=== PATIENT | female | born 1960 | race Two or more races ===

== ENCOUNTER 2025-01-07 12:46 | Inpatient (IN) | payer MEDICARE, OTHER ==
[~2025-01-07] VITALS: Ht 157.5 cm; Wt 64.0 kg
--- NOTE | 2025-01-07 14:13 | DVH ---
EXAM: CT HEAD WITHOUT CONTRAST; DATE: 01/07/2025 01:39 PM HISTORY: dizzy, n/v COMPARISON: None TECHNIQUE: Axial images were obtained and reformatted in coronal and sagittal planes. All CT scans at this medical facility are performed using dose modulation techniques as appropriate t o a performed exam including the following: Automated exposure control was utilized; adjustment of th e MA and/or KV according to patient size; and use of iterative reconstruction technique. CT Dose: CTDI volume is 51 mGy. Dose-length product is 101 mGy*cm FINDINGS: Supratentorial Region: No evidence for large acute territorial ischemia. No intracranial hemorrhage is noted. An old lacunar infarct is seen in the left basal ganglia. Symmetric calcification of the b ilateral globus pallidi noted. Posterior Fossa: No acute abnormality. Brainstem: Unremarkable. Sellar/Suprasellar Region: Unremarkable. Ventricles, Cisterns, Sulci: Age-appropriate. Orbits: Unremarkable. Paranasal Sinuses: Unremarkable. Mastoid Air Cells: Unremarkable. Vasculature: Intracranial arterial calcified plaque formation noted. Bones/Soft Tissues: No acute abnormality. Other: None. IMPRESSION: 1. No acute intracranial process.
[2025-01-07 14:23] LABS: Basophils # (auto) 0.1 10 ^3/uL (0-0.2); Basophils % (auto) 0.4 % (0.0-2.0); Eosinophils # (auto) 0 10 ^3/uL (0-0.8); Eosinophils % (auto) 0.2 % (0.0-7.0); Hemoglobin 13.7 g/dL (12.2-16.2); Lymphocytes # (auto) 1.4 10 ^3/uL (0.4-5.4); Lymphocytes % (auto) 8.8 % (10.0-50.0); Mean Corpuscular Hemoglobin 28.5 pg (28.0-32.0); Mean Corpuscular Hgb Conc. 34.3 g/dL (32.0-36.0); Mean Corpuscular Volume 83.2 fL (80.0-100.0); Monocytes # (auto) 0.4 10 ^3/uL (0-1.3); Monocytes % (auto) 2.3 % (0.0-12.0); Neutrophils # (auto) 13.7 10 ^3/uL (1.6-8.6); Neutrophils % (auto) 88.3 % (37.0-80.0); Platelet Count (auto) 273 10^3/uL (140-450); Red Blood Cells 4.81 10^6/uL (4.0-5.20); Red Cell Distribution Width 12.6 % (11.8-14.3); White Blood Cell 15.5 10^3/uL (4.4-10.8)
--- NOTE | 2025-01-07 14:24 | ED.PDOC ---
HPI (NEURO) HPI Comments 64y F who presents to the ED for chief complaint of dizziness. Pt states earlier AM this while in bed, pt tried getting up and attempting to use the restroom but states she felt dizzy as if the room was spinning, then developed nausea and vomiting. Pt daughter went to check on her and pt was weak and lethargic and noted nausea with 1x vomiting episode. Pt continued to have multiple vomiting episodes with noted generalized weakness and was brought to the ED for further evaluation. Pt in the ED, states has has noted history of HTN and DM and due to changes in insurance, she has been without her medications for the past 1 year. Pt in the ED, has noted accu check of 348 and BP of 189/84. Pt states she feels dizzy and states the room is spinning and states she is afraid to open her eyes as this exacerbates the dizziness. Patient also notes diffuse headache. Pt in the ED, otherwise denies chest pain, abdominal pain, shortness of breath, fever, cough, chills, or dysuria. Pt otherwise denies any other symptoms at this time. Chief Complaint: dizziness Time Seen by MD: 14:19 Reviewed Notes: Medications, Allergies Information Source: Patient, Relative Mode of Arrival: Wheelchair Brought in by: daughter Past Medical History PAST MEDICAL HISTORY: CAD, DM, High Lipids, HTN Surgical History: Denies all surgeries [employer] History: Unknown Family History Family History: Reviewed,noncontributory to illness Social History Smoker: Non-Smoker Alcohol: Denies ETOH Use Drugs: Denies Drug Use Lives In: Home Constitutional: denies: chills, diaphoresis, fatigue, fever, malaise, sweats, weakness, others EENTM: denies: blurred vision, double vision, ear bleeding, ear discharge, ear drainage, ear pain, ear ringing, eye pain, eye redness, hearing loss, mouth pain, mouth swelling, nasal discharge, nose bleeding, nose congestion, nose pain, photophobia, tearing, throat pain, throat swelling, voice changes, others Respiratory: denies: cough, hemoptysis, orthopnea, SOB at rest, shortness of breath, SOB with excertion, stridor, wheezing, others Cardiovascular: denies: chest pain, dizzy spells, diaphoresis, Dyspnea on exertion, edema, irregular heart beat, left arm pain, lightheadedness, palpitations, PND, syncope, others Gastrointestinal: reports: nausea, vomiting; denies: abdomen distended, abdominal pain, blood streaked bowels, constipated, diarrhea, dysphagia, difficulty swallowing, hematemesis, melena, poor appetite, poor fluid intake, rectal bleeding, rectal pain, others Genitourinary: denies: abnormal vagina bleeding, burning, dyspareunia, dysuria, flank pain, frequency, hematuria, incontinence, pain, , vagina discharge, urgency, others Neurological: reports: dizziness, headache; denies: fainting, left sided numbness, left sided weakness, numbness, paresthesia, pre-existing deficit, right sided numbness, right sided weakness, seizure, speech problems, tingling, tremors, weakness, others Musculoskeletal: denies: back pain, gout, joint pain, joint swelling, muscle pain, muscle stiffness, neck pain, others Integumetry: denies: bruises, change in color, change in hair/nails, dryness, laceration, lesions, lumps, rash, wounds, others Allergic/Immunocompromised: denies: Difficulty Healing, Frequent Infections, Hives, Itching, others Hematologic/Lymphatic: denies: anemia, blood clots, easy bleeding, easy bruising, swollen glands, others Endocrine: denies: excessive hunger, excessive sweating, excessive thirst, excessive urination, flushing, intolerance to cold, intolerance to heat, unexplained weight gain, unexplained weight loss, others Psychiatric: denies: anxiety, bipolar disorder, depression, hopeless, panic disorder, schizophrenia, sleepless, suicidal, others All Other Systems: Reviewed and Negative Physical Exam General Appearance: Moderate Distress HEENT: PERRL/EOMI, Other (Face symmetric. Moist mucous membranes.) Neck: Full Range of Motion, Normal Inspection Respiratory: Lungs Clear, No Accessory Muscle Use, No Respiratory Distress, Normal Breath Sounds Cardiovascular: No Edema, No JVD, Regular Rate/Rhythm Breast Exam: Deferred Gastrointestinal: Non Tender, Soft Genitalia: Deferred Pelvic: Deferred Rectal: Deferred Extremities: Normal inspection, Normal range of motion, Non-tender, No pedal edema Neurologic: Alert (Oriented x4), Headache, Normal Affect, Normal Mood, Other (Head and/or eye movement reproduces dizziness. Moves all extremities with ad equate strength and tone. No gross focal deficit.) Cerebellar Function: NOT DONE Reflexes: NOT DONE Skin: Dry, Normal Color, Warm Lymphatic: NOT DONE EKG EKG : Comments Sinus rhythm, rate 77, normal NH and QRS intervals, QTC prolonged at 510, normal axis, normal QRS, nonspecific T changes. Was a procedure done? Was a procedure done?: No Differential Diagnosis (SZ) Seizure: CVA/TIA, Hypoglycemia, Hyponatremia, Mass Lesion, Encephalopathy CVA: DKA General Weakness: Anemia, Dehydration, Electrolyte imbalance, Myocardial infarction, Vertigo: central, Vertigo: peripheral, Other (HTN urgency/emergency) Headache: Migraine, Epidural Hemorrhage, Intracerebral Hemorrhage, Subarachnoid Hemorrhage, Subdural Hemorrhage X-Ray, Labs, Meds, VS Vital Signs Date Time Temp Pulse Resp B/P (MAP) Pulse Ox O2 Delivery O2 Flow Rate FiO2 01/07/25 13:25 77 01/07/25 13:20 97.9 79 18 189/84 (119) 97 97.9 Lab Test 01/07/25 15:17 01/07/25 14:13 01/07/25 13:17 Range/Units Troponin I High Sensitivity 3 L < 3 L </=34 ng/L White Blood Count 15.5 H 4.4-10.8 10^3/uL Red Blood Count 4.81 4.0-5.20 10^6/uL Hemoglobin 13.7 12.2-16.2 g/dL Hematocrit 40.0 36.0-46.0 % Mean Corpuscular Volume 83.2 80.0-100.0 fL Mean Corpuscular Hemoglobin 28.5 28.0-32.0 pg Mean Corpuscular Hemoglobin Concent 34.3 32.0-36.0 g/dL Red Cell Distribution Width 12.6 11.8-14.3 % Platelet Count 273 140-450 10^3/uL Mean Platelet Volume 8.2 6.9-10.8 fL Neutrophils (%) (Auto) 88.3 H 37.0-80.0 % Lymphocytes (%) (Auto) 8.8 L 10.0-50.0 % Monocytes (%) (Auto) 2.3 0.0-12.0 % Eosinophils (%) (Auto) 0.2 0.0-7.0 % Basophils (%) (Auto) 0.4 0.0-2.0 % Neutrophils # (Auto) 13.7 H 1.6-8.6 10 ^3/uL Lymphocytes # (Auto) 1.4 0.4-5.4 10 ^3/uL Monocytes # (Auto) 0.4 0-1.3 10 ^3/uL Eosinophils # (Auto) 0 0-0.8 10 ^3/uL Basophils # (Auto) 0.1 0-0.2 10 ^3/uL Nucleated Red Blood Cells 0.0 % Sodium Level 135 L 136-145 mmol/L Potassium Level 4.0 3.5-5.1 mmol/L Chloride Level 99 98-107 mmol/L Carbon Dioxide Level 25 20-31 mmol/L Anion Gap 11 5-15 Blood Urea Nitrogen 15 9-23 mg/dL Creatinine 0.75 0.550-1.02 mg/dL Glomerular Filtration Rate Calc 88 >90 mL/min BUN/Creatinine Ratio 20.0 10.0-20.0 Serum Glucose 371 H 74-106 mg/dL Calcium Level 9.7 8.7-10.4 mg/dL Total Bilirubin 0.9 0.2-1.0 mg/dL Aspartate Amino Transferase (AST) 12 L 13-40 U/L Alanine Aminotransferase (ALT) 12 7-40 U/L Alkaline Phosphatase 153 H 46-116 U/L B-Type Natriuretic Peptide 25.84 0-100 pg/mL Total Protein 7.6 5.7-8.2 g/dL Albumin 4.5 3.2-4.8 g/dL POC Glucose 348 H 70-106 mg/dl [place] [id number] Ph: [phone] DIAGNOSTIC IMAGING Diagnostic Imaging Report : [id number] Signed PATIENT: NEDRA PACKER ACCT: [id number] UNIT: [id number] : 1960 LOC: ER ROOM / BED: / AGE / SEX: 64 / F ADM STATUS: REG ER SERVICE 1330 ORDERING PHYSICIAN: SAI CAMPOS MD PROCEDURE(s): HWOCT - HEAD WITHOUT CONTRAST REASON: dizzy, n/v ORDER NUMBER(s): [id number], ACCESSION NUMBER(s): [id number] EXAM: CT HEAD WITHOUT CONTRAST; DATE: 01/07/2025 01:39 PM HISTORY: dizzy, n/v COMPARISON: None TECHNIQUE: Axial images were obtained and reformatted in coronal and sagittal planes. All CT scans at this medical facility are performed using dose modulation techniques as appropriate to a performed exam including the following: Automated exposure control was utilized; adjustment of the MA and/or KV according to patient size; and use of iterative reconstruction technique. CT Dose: CTDI volume is 51 mGy. Dose-length product is 101 mGy*cm FINDINGS: Supratentorial Region: No evidence for large acute territorial ischemia. No intracranial hemorrhage is noted. An old lacunar infarct is seen in the left basal ganglia. Symmetric calcification of the bilateral globus pallidi noted. Posterior Fossa: No acute abnormality. Brainstem: Unremarkable. Sellar/Suprasellar Region: Unremarkable. Ventricles, Cisterns, Sulci: Age-appropriate. Orbits: Unremarkable. Paranasal Sinuses: Unremarkable. Mastoid Air Cells: Unremarkable. Vasculature: Intracranial arterial calcified plaque formation noted. Bones/Soft Tissues: No acute abnormality. Other: None. IMPRESSION: 1. No acute intracranial process. ATED BY: DAMARIS BUCKLEY MD DICTATED DATE/TIME: 01/07/25 141 SIGNED BY: DAMARIS BUCKLEY MD SIGNED DATE/TIME: 01/07/25 141 CC: [place] [id number] Ph: [phone] DIAGNOSTIC IMAGING Diagnostic Imaging Report : [id number] Signed PATIENT: NEDRA PACKER ACCT: [id number] UNIT: [id number] : 1960 LOC: ER ROOM / BED: / AGE / SEX: 64 / F ADM STATUS: REG ER SERVICE 1330 ORDERING PHYSICIAN: SAI CAMPOS MD PROCEDURE(s): CXRP - CHEST PORTABLE REASON: dizzy, n/v ORDER NUMBER(s): [id number], ACCESSION NUMBER(s): [id number] EXAM: XY CHEST PORTABLE Indication: dizzy, n/v Technique: Single frontal view of the chest was obtained Comparison: None FINDINGS: Lines and Tubes: None Lungs: No focal consolidation. Pleura: No effusion. No pneumothorax. Cardiomediastinal contours: Unremarkable. Atherosclerotic vascular calcifications of the thoracic aorta are noted. Bones: No acute osseous abnormality. IMPRESSION: No acute cardiopulmonary disease. ATED BY: GISELLA SANTACRUZ MD DICTATED DATE/TIME: 01/07/251437 SIGNED BY: GISELLA SANTACRUZ MD SIGNED DATE/TIME: 01/07/251437 CC: X-Ray, Labs, Meds, VS Comment 64-year-old female with a history of diabetes, hypertension, dyslipidemia and heart disease brought in by daughter for evaluation of vertigo, nausea and vomiting Vitals remarkable for BP 189/84 Exam remarkable for reproducible dizziness with eye/head movement and active vomiting Rhythm strip independently interpreted by me: Sinus rhythm, rate 77, no ectopy. CT head unremarkable CBC remarkable for WBC 15.5, metabolic panel remarkable for sodium 135, glucose 371, BNP and troponin negative Patient treated with the following in the ED: Meclizine 50 mg p.o., Zofran 4 mg IV, 1 L 0.9 normal saline IV, hydralazine 5 mg IV On re-evaluation, patient states symptoms have somewhat improved but are still present. Plan is to admit the patient for blood pressure control, glucose and electrolyte correction, and neuro evaluation. Time of 1ST Reevaluation: 14:50 Reevaluation 1ST: Unchanged Patient Education/Counseling: Diagnosis, Treatment Family Education/Counseling: Diagnosis, Treatment Additional Information -Reviewed patient's previous visit(s): - The following tests were ordered, and results were reviewed by me: trop x2, cbc, cmp, bnp, chest x-ray, ua, ekg x 1, ct head w/o contrast, - Additional information was gathered from interviewing the following independent Historian: pt daughter - I reviewed and agreed with the following test results read by other provider: radiologist - I discussed treatments and results with medical personnel and: patient and pt daughter Comprehensive systems review obtained and negative except for what is stated in the HPI. Departure 1 Departure Time of Disposition: 15:03 Impression: Primary Impression: Vertigo Additional Impressions: Hypertensive urgency Hyperglycemia Hyponatremia Disposition: 09 ADMITTED INPATIENT Admit to: Tele Condition: Guarded Critical Care Note Critical Care Time?: No Stability Stability form required: No Heart Score Heart Score: Heart Score Response (Comments) Value History N/A 0 EKG N/A 0 Age N/A 0 Risk Factors N/A 0 Troponin N/A 0 Total 0 I personally scribed for SAI CAMPOS MD ([facility] on 01/07/25 at 14:24. Electronically submitted by Flavio Vivas ([email or web address] I personally scribed for SAI CAMPOS MD ([facility]) on 01/07/25 at 14:25. Electronically submitted by Flavio Vivas ([facility] I personally scribed for SAI CAMPOS MD ([facility]) on 01/07/25 at 15:06. Electronically submitted by Flavio Vivas ([email or web address] SAI CAMPOS MD Jan 07, 2025 14:24
[2025-01-07 14:37] LABS: Alanine Aminotransferase 12 U/L (7-40); Albumin 4.5 g/dL (3.2-4.8); Anion Gap 11 (5-15); Blood Urea Nitrogen 15 mg/dL (9-23); Calcium 9.7 mg/dL (8.7-10.4); Carbon Dioxide 25 mmol/L (20-31); Chloride 99 mmol/L (98-107); Total Protein 7.6 g/dL (5.7-8.2)
[2025-01-07 14:38] LABS: Alkaline Phosphatase 153 U/L (46-116); Aspartate Aminotransferase 12 U/L (13-40); Bilirubin, Total 0.9 mg/dL (0.2-1.0); Glucose 371 mg/dL (74-106); Sodium 135 mmol/L (136-145)
--- NOTE | 2025-01-07 14:40 | DVH ---
EXAM: XY CHEST PORTABLE Indication: dizzy, n/v Technique: Single frontal view of the chest was obtained Comparison: None FINDINGS: Lines and Tubes: None Lungs: No focal consolidation. Pleura: No effusion. No pneumothorax. Cardiomediastinal contours: Unremarkable. Atherosclerotic vascular calcifications of the thoracic ao rta are noted. Bones: No acute osseous abnormality. IMPRESSION: No acute cardiopulmonary disease.
[2025-01-07] MEDS: SODIUM CHLORIDE 0.9% 1,000 ML IV ONE (16:18)
[2025-01-07] MEDS: ONDANSETRON HCL 4 MG/2 ML VIAL IV ONE (16:23)
[2025-01-07] MEDS: MECLIZINE HCL 25 MG TAB PO ONE (16:24)
[2025-01-07] MEDS: hydrALAZINE HCL 20 MG/ML VL IV ONE (16:28)
[2025-01-07 16:59] LABS: Urine Bacteria None Seen /hpf (None Seen)
[2025-01-07 17:14] LABS: Urine Blood Negative /uL (Negative); Urine Clarity Clear (Clear); Urine Color Light-Yellow (Yellow); Urine Protein, UAD Negative (Negative); Urine Specific Gravity 1.034 (1.001-1.035); Urine Squamous Epithelial Cell FEW /hpf (<5); Urine Urobilinogen Normal (Negative); Urine WBC 13 /HPF (0-5); Urine pH 5.5 (5.0-9.0)
--- NOTE | 2025-01-07 18:58 | ECG ---
[facility] Test Date: 2025-01-07 Test Time: 13:22:33 Pat Name: NEDRA PACKER Department: ED Room: [address] [place] [address] Gender: F Recreation Programmer: RUTH : 1960 Requested By: SAI LAURA Order Number: [id number] Reading MD: Jamal Soares Measurements Intervals [place] Rate: 77 P: 60 IA: 138 QRS: -12 QRSD: 100 T: 41 QT: 450 QTc: 510 Interpretive Statements Sinus rhythm Borderline T wave abnormalities Prolonged QT interval Electronically Signed On 01-08-2025 13:45:24 PDT by Jamal Soares Please click the below link to view image of tracing.
[2025-01-07] MEDS ORDERED: ONDANSETRON HCL 4 MG/2 ML VIAL IV PRN (19:00)
[2025-01-07] MEDS ORDERED: DEXTROSE (50%) 50ML SYRG IV PRN (19:00)
[2025-01-07] MEDS: LISINOPRIL 5 MG TAB PO ONE (20:18)
[2025-01-07 20:28] VITALS: RESP 18; O2SAT 96
[2025-01-07] MEDS: ACCU-CHEK COMFORT CURVE STRIP VI SCH (22:14)
[2025-01-07] MEDS: InsuLIN REG 1unit/0.01ml Soln (100units/ml) SC SCH (22:17)
--- NOTE | 2025-01-08 00:42 | DVHHP2 ---
History of Present Illness Reason for Visit: Dizziness History of Present Illness 64-year-old female presents for evaluation of dizziness. Patient reports developing dizziness with mild nausea. She states his symptoms started today. On arrival to the emergency department patient's blood pressure was in the 180s. Patient denies chest pain or shortness for breath. No other acute complaints reported. Past Medical History Hypertension, dyslipidemia, diabetes mellitus, CAD Past Surgical History Denies Family History Noncontributory Smoke: No ALCOHOL: none Drugs: None Lives: with Family Review of Systems Review of Systems Review of systems are currently negative otherwise addressed in HPI. Allergies: Coded Allergies: NO KNOWN ALLERGIES (Unverified , 01/07/25) Medications Current Medications Medications Dose Ordered Sig/Aga Route Start Time Stop Time Status Last Admin Dose Admin Lisinopril 10 mg DAILY PO 01/08/25 10:00 Hydralazine HCl 10 mg Q6HP PRN IV 01/07/25 19:00 Ondansetron HCl 4 mg Q4HP PRN IV 01/07/25 19:00 Acetaminophen 650 mg Q6HP PRN PO 01/07/25 19:00 Diagnostic Test (Pha) 1 strip ACHS 01/07/25 22:00 01/07/25 22:14 1 STRIP Insulin Human Regular ACHS SC 01/07/25 22:00 01/07/25 22:17 4 UNITS Dextrose 50 ml UD PRN IV 01/07/25 19:00 Exam Vital Signs Vital Signs Date Time Temp Pulse Resp B/P (MAP) Pulse Ox O2 Delivery O2 Flow Rate FiO2 01/07/25 20:28 18 96 Room Air* 0 21 21 01/07/25 20:18 168/62 01/07/25 20:13 99.1 97 99.1 Exam Gen: 64-year-old female mild distress. Skin: Warm, dry, normal color and texture, no rash. HEENT: Normocephalic atraumatic, mucous membranes moist and pink. Neck: Cervical and supraclavicular nodes normal without enlargement, trachea is midline, thyroid gland is normal without masses. Pulmonary: Clear to auscultation and percussion bilaterally. Cardiac: Regular rate and rhythm. No murmur Abdomen: Soft, nontender, nondistended, bowel sounds present all 4 quadrants, no guarding, no rigidity, no organomegaly. Extremities: No cyanosis, clubbing, no edema Neuro: Cranial nerves II through XII grossly intact, normal affect and speech, no focal motor deficits. Labs/Xrays ORDERING PHYSICIAN: SAI CAMPOS MD PROCEDURE(s): CXRP - CHEST PORTABLE REASON: dizzy, n/v ORDER NUMBER(s): [id number], ACCESSION NUMBER(s): [id number] EXAM: XY CHEST PORTABLE Indication: dizzy, n/v Technique: Single frontal view of the chest was obtained Comparison: None FINDINGS: Lines and Tubes: None Lungs: No focal consolidation. Pleura: No effusion. No pneumothorax. Cardiomediastinal contours: Unremarkable. Atherosclerotic vascular calcifications of the thoracic aorta are noted. Bones: No acute osseous abnormality. IMPRESSION: No acute cardiopulmonary disease. RING PHYSICIAN: SAI CAMPOS MD PROCEDURE(s): HWOCT - HEAD WITHOUT CONTRAST REASON: dizzy, n/v ORDER NUMBER(s): [id number], ACCESSION NUMBER(s): [id number] EXAM: CT HEAD WITHOUT CONTRAST; DATE: 01/07/2025 01:39 PM HISTORY: dizzy, n/v COMPARISON: None TECHNIQUE: Axial images were obtained and reformatted in coronal and sagittal planes. All CT scans at this medical facility are performed using dose modulation techniques as appropriate to a performed exam including the following: Automated exposure control was utilized; adjustment of the MA and/or KV according to patient size; and use of iterative reconstruction technique. CT Dose: CTDI volume is 51 mGy. Dose-length product is 101 mGy*cm FINDINGS: Supratentorial Region: No evidence for large acute territorial ischemia. No intracranial hemorrhage is noted. An old lacunar infarct is seen in the left basal ganglia. Symmetric calcification of the bilateral globus pallidi noted. Posterior Fossa: No acute abnormality. Brainstem: Unremarkable. Sellar/Suprasellar Region: Unremarkable. Ventricles, Cisterns, Sulci: Age-appropriate. Orbits: Unremarkable. Paranasal Sinuses: Unremarkable. Mastoid Air Cells: Unremarkable. Vasculature: Intracranial arterial calcified plaque formation noted. Bones/Soft Tissues: No acute abnormality. Other: None. IMPRESSION: 1. No acute intracranial process. Labs Test 01/07/25 22:11 01/07/25 15:17 01/07/25 14:28 01/07/25 14:13 Range/Units POC Glucose 249 H 70-106 mg/dl Troponin I High Sensitivity 3 L </=34 ng/L Urine Color Light-yellow Yellow Urine Clarity Clear Clear Urine pH 5.5 5.0-9.0 Urine Specific [place] 1.034 1.001-1.035 Urine Protein Negative Negative Urine Ketones 2+ H Negative Urine Blood Negative Negative /uL Urine Nitrite Negative Negative Urine Bilirubin Negative Negative Urine Urobilinogen Normal Negative mg/dL Urine Leukocyte Esterase 1+ Negative /uL Urine RBC <1 0 - 4 /hpf Urine Microscopic WBC 13 H 0-5 /HPF Urine Squamous Epithelial Cells Few <5 /hpf Urine Bacteria None seen None Seen /hpf Urine Glucose 4+ H Normal mg/dL White Blood Count 15.5 H 4.4-10.8 10^3/uL Red Blood Count 4.81 4.0-5.20 10^6/uL Hemoglobin 13.7 12.2-16.2 g/dL Hematocrit 40.0 36.0-46.0 % Mean Corpuscular Volume 83.2 80.0-100.0 fL Mean Corpuscular Hemoglobin 28.5 28.0-32.0 pg Mean Corpuscular Hemoglobin Concent 34.3 32.0-36.0 g/dL Red Cell Distribution Width 12.6 11.8-14.3 % Platelet Count 273 140-450 10^3/uL Mean Platelet Volume 8.2 6.9-10.8 fL Neutrophils (%) (Auto) 88.3 H 37.0-80.0 % Lymphocytes (%) (Auto) 8.8 L 10.0-50.0 % Monocytes (%) (Auto) 2.3 0.0-12.0 % Eosinophils (%) (Auto) 0.2 0.0-7.0 % Basophils (%) (Auto) 0.4 0.0-2.0 % Neutrophils # (Auto) 13.7 H 1.6-8.6 10 ^3/uL Lymphocytes # (Auto) 1.4 0.4-5.4 10 ^3/uL Monocytes # (Auto) 0.4 0-1.3 10 ^3/uL Eosinophils # (Auto) 0 0-0.8 10 ^3/uL Basophils # (Auto) 0.1 0-0.2 10 ^3/uL Nucleated Red Blood Cells 0.0 % Sodium Level 135 L 136-145 mmol/L Potassium Level 4.0 3.5-5.1 mmol/L Chloride Level 99 98-107 mmol/L Carbon Dioxide Level 25 20-31 mmol/L Anion Gap 11 5-15 Blood Urea Nitrogen 15 9-23 mg/dL Creatinine 0.75 0.550-1.02 mg/dL Glomerular Filtration Rate Calc 88 >90 mL/min BUN/Creatinine Ratio 20.0 10.0-20.0 Serum Glucose 371 H 74-106 mg/dL Calcium Level 9.7 8.7-10.4 mg/dL Total Bilirubin 0.9 0.2-1.0 mg/dL Aspartate Amino Transferase (AST) 12 L 13-40 U/L Alanine Aminotransferase (ALT) 12 7-40 U/L Alkaline Phosphatase 153 H 46-116 U/L B-Type Natriuretic Peptide 25.84 0-100 pg/mL Total Protein 7.6 5.7-8.2 g/dL Albumin 4.5 3.2-4.8 g/dL Assessment/Plan Assessment/Plan Assessment Hypertensive urgency Uncontrolled diabetes mellitus Urinary tract infection Plan Admit the patient to [facility] to the hospitalist Echocardiogram pending Rocephin As needed antihypertensives Rocephin Resume home medications Continue treatment per orders. Plan discussed with: Patient My Orders Orders - CHRISTINE WINSLOW AGACNP Procedure Category Date Status Time Lisinopril Tablet PHA 01/08/25 In Process (Zestril Tablet) 10:00 Consistent DIET 01/08/25 Transmitted Carb(Ccho)Diabetes Breakfast Hydralazine Injection PHA 01/07/25 In Process (Apresoline Inject 19:00 Admit ADMIT 01/07/25 Transmitted 19:00 Ondansetron Hcl PHA 01/07/25 In Process (Zofran) 19:00 Echo 2d Mode Cardiac US 01/07/25 Logged DOP 19:00 Condition: Stable MAURILIO 01/07/25 In Process 19:00 Acetaminophen Tablet PHA 01/07/25 In Process (Tylenol Tablet) 19:00 Bedrest With Bathroom MAURILIO 01/07/25 In Process Privileg 19:00 Glucose Blood PHA 01/07/25 In Process (Accu-Chek Comfort 22:00 Insulin R (Human) PHA 01/07/25 In Process (Insulin R) 22:00 Dextrose 50% Syringe PHA 01/07/25 In Process 19:00 Date of Service: Jan 07, 2025 Billing Provider: CHRISTINE WINSLOW Common Visit Codes: [id number] INP/OBS CARE (HIGH) CHRISTINE WINSLOW Jan 08, 2025 00:42
[2025-01-08] MEDS ORDERED: MECLIZINE HCL 25 MG TAB PO PRN (00:45)
[2025-01-08] MEDS: ACETAMINOPHEN 325 MG TAB PO PRN (03:11)
[2025-01-08 03:54] VITALS: BP 115/93; PULSE 74; RESP 16; TEMP 98.2; O2SAT 96
[2025-01-08 05:00] VITALS: BP 146/59; PULSE 59; RESP 18; TEMP 98.4; O2SAT 97
[2025-01-08 08:20] VITALS: BP 122/55; PULSE 73; RESP 16; TEMP 97.6; O2SAT 98
[2025-01-08] MEDS: LISINOPRIL 5 MG TAB PO SCH (09:24)
[2025-01-08 13:02] VITALS: BP 142/67; PULSE 78; RESP 14; TEMP 98.3; O2SAT 98
--- NOTE | 2025-01-08 16:26 | DVHPN2 ---
Subjective Patient continues to report having generalized weakness. Reviewed: Care Plan, H&P, Labs, Medications, Previous Orders Changes from previous H/P or p: No Changes Objective Vitals Vital Signs Date Time Temp Pulse Resp B/P (MAP) Pulse Ox O2 Delivery O2 Flow Rate FiO2 01/08/25 13:02 98.3 78 14 142/67 (92) 98 98.3 01/08/25 03:54 Room Air* 0 21 Intake/Output Intake and Output 01/08/25 07:00 Intake Total 240 ml Balance 240 ml Intake Oral 240 ml # Voids 1 General Appearance: Alert, Oriented X3, Cooperative, mild distress HEENT: Atraumatic, PERRLA Cardiovascular: Normal S1, Normal S2 Abdomen: Normal bowel sounds Musculoskeletal: Normal sensory function, Normal motor function Psych/Mental Status: Mental status NL, Mood NL Medications Current Medications Medications Dose Ordered Sig/Aga Route Start Time Stop Time Status Last Admin Dose Admin Lisinopril 10 mg DAILY PO 01/08/25 10:00 01/08/25 09:24 10 MG Hydralazine HCl 10 mg Q6HP PRN IV 01/07/25 19:00 Ondansetron HCl 4 mg Q4HP PRN IV 01/07/25 19:00 Acetaminophen 650 mg Q6HP PRN PO 01/07/25 19:00 01/08/25 03:11 650 MG Diagnostic Test (Pha) 1 strip ACHS 01/07/25 22:00 01/08/25 12:12 1 STRIP Insulin Human Regular ACHS SC 01/07/25 22:00 01/08/25 12:30 6 UNITS Dextrose 50 ml UD PRN IV 01/07/25 19:00 Meclizine HCl 25 mg Q6HPRN PRN PO 01/08/25 00:45 Laboratory Results Laboratory Tests 01/07/25 14:13 Urinalysis Test 01/07/25 14:28 Urine Color Light-yellow (Yellow) Urine Clarity Clear (Clear) Urine pH 5.5 (5.0-9.0) Urine Specific [place] 1.034 (1.001-1.035) Urine Protein Negative (Negative) Urine Ketones 2+ (Negative) H Urine Blood Negative /uL (Negative) Urine Nitrite Negative (Negative) Urine Bilirubin Negative (Negative) Urine Urobilinogen Normal mg/dL (Negative) Urine Leukocyte Esterase 1+ /uL (Negative) Urine RBC <1 /hpf (0 - 4) Urine Microscopic WBC 13 /HPF (0-5) H Urine Squamous Epithelial Cells Few /hpf (<5) Urine Bacteria None seen /hpf (None Seen) Urine Glucose 4+ mg/dL (Normal) H Labs and/or images reviewed: Labs reviewed by me, Image(s) reviewed by me Assessment/Plan Assessment/Plan Impression: -hypertensive crisis -diabetes mellitus, uncontrolled -CVA, ruled out Plan: -long discussion made with the patient who reports that she was not follow up with the doctor or take any medications because her insurance changed when she turns 63. Patient has no supplemental insurance. -Echocardiogram pending -CT scan of the head negative for any acute pathology -patient was blood pressure better controlled with lisinopril. Blood sugars continue to be elevated greater than 300 and was per dL -regular insulin sliding scale -IV hydration -social service consultation for discharge assistance with home medications -check LDL and A1c Total time spent with patient discussing and formulating plan of care: 35 minutes. This medical document was created using an electronic medical record system with [employer] dictation system. Although this document has been carefully reviewed, there may still be some phonetic and typographical errors. These areas are purely typographical due to imperfections of the software programs, and do not reflect any compromise in the patient's medical care. Plan discussed with: Patient, Other (RN) My Orders Orders - TANIA HOOKER NP Procedure Category Date Status Time * [employer] CONS 01/08/25 Transmitted Consult Hemoglobin A1c LAB 01/08/25 Logged 16:19 Lipid Panel LAB 01/08/25 Logged 16:19 * [employer] CONS 01/08/25 Transmitted Consult Date of Service: Jan 08, 2025 Billing Provider: TANIA HOOKER NP Common Visit Codes: [id number] INP/OBS CARE(HIGH) TANIA HOOKER NP Jan 08, 2025 16:26
[2025-01-08] MEDS: SODIUM CHLORIDE 0.9% 1,000 ML IV ONE (16:39)
[2025-01-08 17:05] VITALS: BP 137/67; PULSE 84; RESP 16; TEMP 98.8; O2SAT 98
[2025-01-08 17:35] LABS: Triglycerides 613 mg/dL (< 150)
[2025-01-08 17:36] LABS: Cholesterol 280 mg/dL (< 200); HDL Cholesterol 35 mg/dL (40-59)
[2025-01-08 21:00] VITALS: BP 164/73; PULSE 97; RESP 18; TEMP 98.9; O2SAT 94
[2025-01-08] MEDS: hydrALAZINE HCL 20 MG/ML VL IV PRN (21:19)
[2025-01-09] VITALS (7 sets, daily range): BP systolic 121–174; BP diastolic 56–74; PULSE 78–92; RESP 18–20; TEMP 97.4–100.7; O2SAT 95–99
--- NOTE | 2025-01-09 11:25 | DVHPN2 ---
Reviewed: Care Plan, H&P, Labs, Medications, Previous Orders Changes from previous H/P or p: No Changes Objective Vitals Vital Signs Date Time Temp Pulse Resp B/P (MAP) Pulse Ox O2 Delivery O2 Flow Rate FiO2 01/09/25 10:31 152/71 01/09/25 09:00 98.1 78 20 99 98.1 01/09/25 08:00 Room Air* 0 21 Intake/Output Intake and Output 01/09/25 07:00 Intake Total 600 ml Balance 600 ml Intake Oral 600 ml # Voids 1 General Appearance: Alert, Oriented X3, Cooperative, mild distress HEENT: Atraumatic, PERRLA Cardiovascular: Normal S1, Normal S2 Abdomen: Normal bowel sounds Musculoskeletal: Normal sensory function, Normal motor function Psych/Mental Status: Mental status NL, Mood NL Medications Current Medications Medications Dose Ordered Sig/Aga Route Start Time Stop Time Status Last Admin Dose Admin Lisinopril 10 mg DAILY PO 01/08/25 10:00 01/09/25 10:31 10 MG Hydralazine HCl 10 mg Q6HP PRN IV 01/07/25 19:00 01/08/25 21:19 10 MG Ondansetron HCl 4 mg Q4HP PRN IV 01/07/25 19:00 Acetaminophen 650 mg Q6HP PRN PO 01/07/25 19:00 01/09/25 01:32 650 MG Diagnostic Test (Pha) 1 strip ACHS 01/07/25 22:00 01/09/25 06:09 1 STRIP Insulin Human Regular ACHS SC 01/07/25 22:00 01/09/25 06:12 3 UNITS Dextrose 50 ml UD PRN IV 01/07/25 19:00 Meclizine HCl 25 mg Q6HPRN PRN PO 01/08/25 00:45 Laboratory Results Laboratory Tests 01/07/25 14:13 Lipid panel Test 01/08/25 17:01 Cholesterol Level 280 mg/dL (< 200) H HDL Cholesterol 35 mg/dL (40-59) L Triglycerides Level 613 mg/dL (< 150) H HgA1c, TSH Test 01/08/25 17:01 Hemoglobin A1c 12.3 % A1C (<5.7) H Urinalysis Test 01/07/25 14:28 Urine Color Light-yellow (Yellow) Urine Clarity Clear (Clear) Urine pH 5.5 (5.0-9.0) Urine Specific [place] 1.034 (1.001-1.035) Urine Protein Negative (Negative) Urine Ketones 2+ (Negative) H Urine Blood Negative /uL (Negative) Urine Nitrite Negative (Negative) Urine Bilirubin Negative (Negative) Urine Urobilinogen Normal mg/dL (Negative) Urine Leukocyte Esterase 1+ /uL (Negative) Urine RBC <1 /hpf (0 - 4) Urine Microscopic WBC 13 /HPF (0-5) H Urine Squamous Epithelial Cells Few /hpf (<5) Urine Bacteria None seen /hpf (None Seen) Urine Glucose 4+ mg/dL (Normal) H Labs and/or images reviewed: Labs reviewed by me, Image(s) reviewed by me Assessment/Plan Assessment/Plan -covering for nurse practitioner Garfield pantoja hypertensive crisis , improving -diabetes mellitus, uncontrolled -CVA, ruled out Hyperlipidemia cholesterol 280: Lipitor 40 mg p.o. HS Patient is noncompliant has not been using her medications because of change of insurance Plan discussed with: Patient Date of Service: Jan 09, 2025 Billing Provider: HODAN MAURER MD Common Visit Codes: [id number] INP/OBS CARE(HIGH) HODAN MAURER MD Jan 09, 2025 11:25
[2025-01-09] MEDS ORDERED: EMPA1TAB PO (15:43)
[2025-01-09] MEDS ORDERED: ATOR20TA50 PO (15:43)
[2025-01-09] MEDS ORDERED: METF-371 PO (15:43)
[2025-01-09] MEDS ORDERED: CHOL20007 OR (15:43)
[2025-01-09] MEDS ORDERED: ASPI81CH59 PO (15:43)
[2025-01-09] MEDS ORDERED: GLIM4TAB42 PO (15:43)
[2025-01-09] MEDS ORDERED: FENO145T27 PO (15:43)
[2025-01-09] MEDS ORDERED: AMLO1TAB23 PO (15:43)
[2025-01-09] MEDS: cloNIDine HCL 0.1 MG TAB PO ONE (16:08)
[2025-01-09] MEDS: ATORVASTATIN 20 MG TAB PO SCH (21:30)
--- NOTE | 2025-01-10 00:09 | DVHSR ---
APPROVED REPORT EXAM: Two-dimensional and M-mode echocardiogram with Doppler and color Doppler. Blood Pressure: 146/64 mmHg INDICATION Chest Pain RISK FACTORS Height: 5'2", Weight: 124 DIMENSIONS LVDd5.0 (3.8-5.7cm)LA (2D)3.5 (1.9-4.0cm)Aortic Root3.1 (2.0-3.7cm) LVDs3.5 (2.5-4.0cm)LA (MM) (1.9-4.0cm)Aortic Cusp Exc1.6 (1.5-2.0cm) EF (%) 55.0 (55-70%)Rt. Atrium3.5 (1.9-4.0cm)Asc. Aorta cm IVSd1.2 (0.7-1.1cm)RV (D) (1.8-2.4cm) PWd1.1 (0.7-1.1cm) Mitral Valve MitralMitral Stenosis E wave0.96m/sMV Mean GR.mmHg A wave0.98m/sMV Peak GR.mmHg E/A ratio1.02D MVAcm2 DECEL [id number] 1/2 [place] Aortic Valve Aortic ValveAortic Stenosis V11.04m/Seth Mean GR.5mmHg V21.43m/Seth Peak GR.8mmHg LVOT Diameter2.1 (1.8-2.4cm)Doppler AVA2.52cm2 Pulmonic Valve V20.89m/s Conclusion NORMAL LV EF AND IS 65% NORMAL RV FUNCTION NORMAL MV,TV , AORTIC AND PV VALVES NO EFFUSION
[2025-01-10 01:05] VITALS: BP 126/58; PULSE 75; RESP 18; TEMP 98.1; O2SAT 96
[2025-01-10 05:00] VITALS: BP 125/59; PULSE 72; RESP 18; TEMP 97.6; O2SAT 98
[2025-01-10 09:00] VITALS: BP 140/70; PULSE 76; RESP 20; TEMP 97.9; O2SAT 97
--- NOTE | 2025-01-10 11:55 | DVHPN2 ---
Reviewed: Care Plan, H&P, Labs, Medications, Previous Orders Changes from previous H/P or p: No Changes Objective Vitals Vital Signs Date Time Temp Pulse Resp B/P (MAP) Pulse Ox O2 Delivery O2 Flow Rate FiO2 01/10/25 09:00 97.9 76 20 140/70 (93) 97 97.9 01/10/25 08:00 Room Air* 0 21 Intake/Output Intake and Output 01/10/25 07:00 Intake Total 1480 ml Balance 1480 ml Intake Oral 1480 ml # Voids 5 General Appearance: Alert, Oriented X3, Cooperative, mild distress HEENT: Atraumatic, PERRLA Cardiovascular: Normal S1, Normal S2 Abdomen: Normal bowel sounds Musculoskeletal: Normal sensory function, Normal motor function Psych/Mental Status: Mental status NL, Mood NL Medications Current Medications Medications Dose Ordered Sig/Aga Route Start Time Stop Time Status Last Admin Dose Admin Lisinopril 10 mg DAILY PO 01/08/25 10:00 01/10/25 08:11 10 MG Hydralazine HCl 10 mg Q6HP PRN IV 01/07/25 19:00 01/09/25 12:59 10 MG Ondansetron HCl 4 mg Q4HP PRN IV 01/07/25 19:00 Acetaminophen 650 mg Q6HP PRN PO 01/07/25 19:00 01/09/25 01:32 650 MG Diagnostic Test (Pha) 1 strip ACHS 01/07/25 22:00 01/10/25 11:24 1 STRIP Insulin Human Regular ACHS SC 01/07/25 22:00 01/10/25 11:23 6 UNITS Dextrose 50 ml UD PRN IV 01/07/25 19:00 Meclizine HCl 25 mg Q6HPRN PRN PO 01/08/25 00:45 Atorvastatin Calcium 40 mg HS PO 01/09/25 22:00 01/09/25 21:30 40 MG Clonidine HCl 0.2 mg Q6HP PRN PO 01/09/25 16:00 Laboratory Results Laboratory Tests 01/07/25 14:13 Urinalysis Test 01/07/25 14:28 Urine Color Light-yellow (Yellow) Urine Clarity Clear (Clear) Urine pH 5.5 (5.0-9.0) Urine Specific [place] 1.034 (1.001-1.035) Urine Protein Negative (Negative) Urine Ketones 2+ (Negative) H Urine Blood Negative /uL (Negative) Urine Nitrite Negative (Negative) Urine Bilirubin Negative (Negative) Urine Urobilinogen Normal mg/dL (Negative) Urine Leukocyte Esterase 1+ /uL (Negative) Urine RBC <1 /hpf (0 - 4) Urine Microscopic WBC 13 /HPF (0-5) H Urine Squamous Epithelial Cells Few /hpf (<5) Urine Bacteria None seen /hpf (None Seen) Urine Glucose 4+ mg/dL (Normal) H Labs and/or images reviewed: Labs reviewed by me, Image(s) reviewed by me Assessment/Plan Assessment/Plan -covering for nurse practitioner Garfield pantoja hypertensive crisis , improving -diabetes mellitus, uncontrolled -CVA, ruled out Hyperlipidemia cholesterol 280: Lipitor 40 mg p.o. HS Patient is noncompliant has not been using her medications because of change of insurance Continue current management Social service consult placed for new PCP in [place] Plan discussed with: Patient My Orders Orders - HODAN MAURER MD Procedure Category Date Status Time Clonidine Hcl Tablet PHA 01/09/25 In Process (Catapres Tablet) 16:00 Date of Service: Jan 10, 2025 Billing Provider: HODAN MAURER MD Common Visit Codes: [id number] INP/OBS CARE(HIGH) HODAN MAURER MD Jan 10, 2025 11:55
[2025-01-10 13:00] VITALS: BP 146/70; PULSE 71; RESP 20; TEMP 98; O2SAT 96
[2025-01-10 17:00] VITALS: BP 142/58; PULSE 73; RESP 20; TEMP 97.9; O2SAT 95
[2025-01-10 21:00] VITALS: BP 185/61; PULSE 89; RESP 18; TEMP 98.6; O2SAT 97
[2025-01-11] VITALS (7 sets, daily range): BP systolic 135–178; BP diastolic 60–72; PULSE 75–86; RESP 16–18; TEMP 97.9–98.6; O2SAT 96–98
[2025-01-11] MEDS: cloNIDine HCL 0.1 MG TAB PO PRN (00:51)
[2025-01-11] MEDS ORDERED: ATOR40TA52 PO (14:12)
[2025-01-11] MEDS ORDERED: METF-370 PO (14:12)
[2025-01-11] MEDS ORDERED: BLOO1KIT60 XX (14:12)
[2025-01-11] MEDS ORDERED: LISI20TA56 PO (14:12)
--- NOTE | 2025-01-11 14:21 | DVHDS2 ---
Discharge Summary Date of Admission Jan 07, 2025 at 19:00 Date of Discharge: Jan 11, 2025 Admitting Diagnosis Hypertensive urgency Labs/Diagnostic Data: Laboratory Results Test 01/11/25 11:32 01/08/25 17:01 01/07/25 15:17 01/07/25 14:28 POC Glucose 238 mg/dl (70-106) Hemoglobin A1c 12.3 % A1C (<5.7) Triglycerides Level 613 mg/dL (< 150) Cholesterol Level 280 mg/dL (< 200) LDL Cholesterol mg/dL (< 100) HDL Cholesterol 35 mg/dL (40-59) Troponin I High Sensitivity 3 ng/L (</=34) Urine Color Light-yellow (Yellow) Urine Clarity Clear (Clear) Urine pH 5.5 (5.0-9.0) Urine Specific [place] 1.034 (1.001-1.035) Urine Protein Negative (Negative) Urine Ketones 2+ (Negative) Urine Blood Negative /uL (Negative) Urine Nitrite Negative (Negative) Urine Bilirubin Negative (Negative) Urine Urobilinogen Normal mg/dL (Negative) Urine Leukocyte Esterase 1+ /uL (Negative) Urine RBC <1 /hpf (0 - 4) Urine Microscopic WBC 13 /HPF (0-5) Urine Squamous Epithelial Cells Few /hpf (<5) Urine Bacteria None seen /hpf (None Seen) Urine Glucose 4+ mg/dL (Normal) Test 01/07/25 14:13 White Blood Count 15.5 10^3/uL (4.4-10.8) Red Blood Count 4.81 10^6/uL (4.0-5.20) Hemoglobin 13.7 g/dL (12.2-16.2) Hematocrit 40.0 % (36.0-46.0) Mean Corpuscular Volume 83.2 fL (80.0-100.0) Mean Corpuscular Hemoglobin 28.5 pg (28.0-32.0) Mean Corpuscular Hemoglobin Concent 34.3 g/dL (32.0-36.0) Red Cell Distribution Width 12.6 % (11.8-14.3) Platelet Count 273 10^3/uL (140-450) Mean Platelet Volume 8.2 fL (6.9-10.8) Neutrophils (%) (Auto) 88.3 % (37.0-80.0) Lymphocytes (%) (Auto) 8.8 % (10.0-50.0) Monocytes (%) (Auto) 2.3 % (0.0-12.0) Eosinophils (%) (Auto) 0.2 % (0.0-7.0) Basophils (%) (Auto) 0.4 % (0.0-2.0) Neutrophils # (Auto) 13.7 10 ^3/uL (1.6-8.6) Lymphocytes # (Auto) 1.4 10 ^3/uL (0.4-5.4) Monocytes # (Auto) 0.4 10 ^3/uL (0-1.3) Eosinophils # (Auto) 0 10 ^3/uL (0-0.8) Basophils # (Auto) 0.1 10 ^3/uL (0-0.2) Nucleated Red Blood Cells 0.0 % Sodium Level 135 mmol/L (136-145) Potassium Level 4.0 mmol/L (3.5-5.1) Chloride Level 99 mmol/L (98-107) Carbon Dioxide Level 25 mmol/L (20-31) Anion Gap 11 (5-15) Blood Urea Nitrogen 15 mg/dL (9-23) Creatinine 0.75 mg/dL (0.550-1.02) Glomerular Filtration Rate Calc 88 mL/min (>90) BUN/Creatinine Ratio 20.0 (10.0-20.0) Serum Glucose 371 mg/dL (74-106) Calcium Level 9.7 mg/dL (8.7-10.4) Total Bilirubin 0.9 mg/dL (0.2-1.0) Aspartate Amino Transferase (AST) 12 U/L (13-40) Alanine Aminotransferase (ALT) 12 U/L (7-40) Alkaline Phosphatase 153 U/L (46-116) B-Type Natriuretic Peptide 25.84 pg/mL (0-100) Total Protein 7.6 g/dL (5.7-8.2) Albumin 4.5 g/dL (3.2-4.8) Other Laboratory Tests 01/07/25 14:13 Brief Hx & Hospital Course: History of Present Illness 64-year-old female presents for evaluation of dizziness. Patient reports developing dizziness with mild nausea. She states his symptoms started today. On arrival to the emergency department patient's blood pressure was in the 180s. Patient denies chest pain or shortness for breath. No other acute complaints reported. Course of hospitalization: Long discussion was made with the patient regarding her comorbidities. Patient was states that she stopped taking all of her medications due to insurance reasons. Patient was given IV hydration, with blood pressure improving with oral antihypertensives. Patient was also found to have severe dyslipidemia. CT scan of the head as well as echocardiogram negative for any acute pathology. Patient was agreeable to be discharged home and continue prescribed medications including: Lisinopril 20 mg p.o. daily, atorvastatin 40 mg p.o. q.h.s., and metformin 500 mg p.o. b.i.d.. Patient was also be prescribed a glucometer. Social service consultation was also obtained given the patient's financial restraints at home. Patient was agreeable with discharge plan. All questions answered. Physical examination General: Alert and Oriented x3. No acute distress. Well-nourished. Eyes: EOMI. Anicteric. HENT: Moist mucous membranes. Lungs: Clear to auscultation bilaterally. No accessory muscle use. Cardiovascular: Regular rate and rhythm. No murmur. No JVD. Abdomen: Soft, non-tender and non-distended. No palpable masses. Extremities: No edema. Non-tender. Skin: No rashes or lesions. Warm. Neurologic: No focal neurological deficits. CN II-XII grossly intact, but not individually tested. Psychiatric: Cooperative. Appropriate mood and affect. Total time spent with patient discussing and formulating plan of care: 35 minutes. This medical document was created using an electronic medical record system with [employer] dictation system. Although this document has been carefully reviewed, there may still be some phonetic and typographical errors. These areas are purely typographical due to imperfections of the software programs, and do not reflect any compromise in the patient's medical care. Condition at Discharge: Fair Final Diagnosis/Problems List Hypertensive crisis Secondary diagnosis: -hypertensive crisis -diabetes mellitus, uncontrolled -CVA, ruled out Medication Noncompliance Severe dyslipidemia Discharge Disposition: Home Discharge Instruct/Medications Diet: Consistent carbohydrate, Cardiac 2g Na,low cholest Activity: No Restrictions, As Tolerated Follow Up/Referral: Discharge Clinic in one week Medications: Metformin 500 mg p.o. b.i.d. Atorvastatin 40 mg p.o. q.h.s. Lisinopril 20 mg p.o. daily 36 Discharge Statement: "Patient was advised to return to the ER or call 911 if any headaches, dizziness, shortness of breath, chest pain, abdominal pain, bleeding, fevers, or worsening of medical condition. Patient was counseled about treatment plan, medications, possible side effects, patientverbalized understanding. All questions were answered to the best of my ability. This discharge took greater then 30 minutes in planning, reviewing documentation, counseling the patient, and discussing with other team members." ASSESSMENT ASSESSMENT Assessment Hypertensive crisis Date of Service: Jan 11, 2025 Billing Provider: TANIA HOOKER NP Common Visit Codes: [id number] DISCH DAY >30min TANIA HOOKER NP Jan 11, 2025 14:21
== END 2025-01-11 16:15 | disposition home or self-care (01) | DRG 305 ==
LOC: ER 12:52 → OVERFLOW 19:00 → WEST WING 01-08 17:46
PROVIDERS: ADMIT Nurse Practitioner Acute Care; ATTEND Nurse Practitioner Acute Care
DX: I16.9 Hypertensive crisis, unspecified (principal); E87.1 Hypo-osmolality and hyponatremia; E78.5 Hyperlipidemia, unspecified; I25.10 Atherosclerotic heart disease of native coronary artery without angina pectoris; Z79.899 Other long term (current) drug therapy; Z91.148 Patient's other noncompliance with medication regimen for other reason; E11.65 Type 2 diabetes mellitus with hyperglycemia; Z79.84 Long term (current) use of oral hypoglycemic drugs; Z91.128 Patient's intentional underdosing of medication regimen for other reason
CPT/HCPCS: 36415; 70450; 71045; 80053; 80061; 81001; 82962; 83036; 83880; 84484; 85025; 93005; 93306; 96361; 96374; G0378; J1815; J2405

== ENCOUNTER → 2025-07-09 | Outpatient (CLI) | payer MEDICARE, MEDICAID ==
[~2025-07-09] MED LIST: AMLO1TAB23 PO; ASPI81CH59 PO; ATOR20TA50 PO; ATOR40TA52 PO; BLOO1KIT60 XX; CHOL20007 OR; EMPA1TAB PO; FENO145T27 PO; GLIM4TAB42 PO; LISI20TA56 PO; METF-370 PO; METF-371 PO
[2025-07-09 11:51] LABS: Hematocrit 36.4 % (36.0-46.0); Hemoglobin 12.3 g/dL (12.2-16.2); Mean Corpuscular Hemoglobin 28.0 pg (28.0-32.0); Mean Corpuscular Volume 83.0 fL (80.0-100.0); Nucleated Red Blood Cells % 0.0 %
[2025-07-09 12:11] LABS: Urine Protein, UAD Negative (Negative)
[2025-07-09 12:42] LABS: Alanine Aminotransferase 11 U/L (7-40); Albumin 4.5 g/dL (3.2-4.8); Anion Gap 11 (5-15); BUN/Creatinine Ratio 12.4 (10.0-20.0); Blood Urea Nitrogen 11 mg/dL (9-23); Calcium 9.8 mg/dL (8.7-10.4); Carbon Dioxide 26 mmol/L (20-31); Chloride 99 mmol/L (98-107); Potassium 4.6 mmol/L (3.5-5.1); Total Protein 8.0 g/dL (5.7-8.2)
[2025-07-09 12:43] LABS: Bilirubin, Total 1.1 mg/dL (0.2-1.0); Cholesterol 186 mg/dL (< 200)
[2025-07-09 12:44] LABS: Alkaline Phosphatase 146 U/L (46-116); Glucose 306 mg/dL (74-106); HDL Cholesterol 36 mg/dL (40-59); Sodium 136 mmol/L (136-145); Triglycerides 461 mg/dL (< 150)
== END | disposition home or self-care (01) ==
LOC: LAB 11:25
PROVIDERS: ATTEND Internal Medicine
DX: I10 Essential (primary) hypertension (principal); E78.00 Pure hypercholesterolemia, unspecified; E11.9 Type 2 diabetes mellitus without complications
CPT/HCPCS: 36415; 80053; 80061; 81001; 82043; 84439; 84443; 85025; 85652